=== PATIENT | female | born 1950 | race American Indian/Alaskan Native ===

== ENCOUNTER 2016-08-28 02:57 | Inpatient (IN) | payer MEDICARE, MEDICAID, OTHER ==
[2016-08-28] MEDS ORDERED: Sodium Chloride 0.9% 1,000 ML IV ONE (03:19)
[2016-08-28] MEDS ORDERED: Sodium Chloride 0.9% 1,000 ML IV STA (04:10)
--- NOTE | 2016-08-28 04:36 | EDM.PDOC ---
ED HPI GI/ABDOMINAL - General Chief Complaint: Gastrointestinal Problem Stated Complaint: fall, dizziness, N/V/D Time Seen by Provider: 08/28/16 03:21 Source of Information: Reports: Patient, EMS notes reviewed History Limitations: Reports: No limitations - History of Present Illness INITIAL COMMENTS - FREE TEXT/NARRATIVE: Albina is a 66 yo female who is brought into the ER via [facility] secondary to recent fall. Albina states she has been having bouts of diarrhea and vomiting since last week Friday. Vomiting subsided on Friday but continues to have around 5 episodes of diarrhea daily. States she is a known diabetic as well but hasn't taken any of her insulin since Friday secondary to not feeling well. States this evening she was lying in bed and had the urge to use the bathroom. Upon getting up from toilet she became lightheaded and fell. She doesn't recall falling and next thing she knew she was lying on the floor with her daughter trying to help her up. States she hit the left side of her head on the tub and has a small abrasion to her right elbow. Denies any post fall symptoms. States she feels fine presently. She admits she has multiple co-morbidities and sees Dr. Miller at [facility] [place] in [place]. She has a history of hypothyroidism, DMII, atrial fibrillation, previous valve replacement. She admits she is well controlled with medications. Checks sugars regularly as well. Associated Symptoms (-Female): Reports: denies other symptoms - Related Data Allergies/ADRs: Allergies Allergy/AdvReac Type Severity Reaction Status Date / Time azithromycin [From Zithromax] Allergy Dizziness Verified 08/28/16 03:04 lactose Allergy Nausea and Verified 08/28/16 03:04 Vomiting morphine Allergy Hives Verified 08/28/16 03:04 .DETERGENTS Allergy Rash Uncoded 08/28/16 03:04 Home Meds: Home Meds Furosemide 20 mg PO BID PRN 11/08/13 [History] Latanoprost 1 drop EYERT BEDTIME 11/08/13 [History] Albuterol [Proair HFA] 2 puff INH QID PRN 11/09/15 [History] Aspirin [Halfprin] 81 mg PO DAILY 11/09/15 [History] Ferrous Gluconate 325 mg PO TID 11/09/15 [History] Insulin Detemir [Levemir] 45 unit SUBCUT BID 11/09/15 [History] Loratadine [Allergy] 10 mg PO DAILY 11/09/15 [History] Psyllium [Metamucil] 1 cap PO BID 11/09/15 [History] atorvaSTATin [Lipitor] 20 mg PO DAILY 11/09/15 [History] Multivitamin [Multi-Day Vitamins] 1 tab PO DAILY 03/11/16 [History] Simethicone 1 tab PO QID PRN 05/09/16 [History] Cyanocobalamin (Vitamin B-12) [Vitamin B-12] 200 mcg PO DAILY 07/02/16 [History] Lisinopril 5 mg PO DAILY 07/02/16 [History] Warfarin [Coumadin] 5 mg PO DAILY #60 tablet 07/03/16 [Rx] Levothyroxine 25 mcg PO DAILY 08/28/16 [History] Past Medical History HEENT History: Reports: Cataract, Glaucoma, Other (see below) Other HEENT History: MYOPIA; PRESBYOPIA; Cardiovascular History: Reports: Afib, CAD, Cardiomyopathy, Heart Failure, Heart valve replacement, High cholesterol, Hypertension Respiratory History: Reports: Asthma Gastrointestinal History: Reports: Chronic constipation Genitourinary History: Reports: Chronic renal insuffiency, Other (see below) Other Genitourinary History: [employer] History: Reports: Dysfunctional uterine bleeding, Musculoskeletal History: Reports: Fracture, Gout Neurological History: Reports: None Endocrine/Metabolic History: Reports: Diabetes, type II Hematologic History: Reports: Anemia Immunologic History: Reports: None - Infectious Disease History Infectious Disease History: Reports: Shingles - Past Surgical History Head Surgeries/Procedures: Reports: None HEENT Surgical History: Reports: Adenoidectomy, Tonsillectomy Cardiovascular Surgical History: Reports: Coronary artery stent, Valve replacement GI Surgical History: Reports: Cholecystectomy, Colonoscopy Female Surgical History: Reports: Hysterectomy Endocrine Surgical History: Reports: None Musculoskeletal Surgical History: Reports: None Social & Family History - Family History Family Medical History: Noncontributory - Tobacco Use Smoking Status *Q: Never Smoker Years of Tobacco use: 20 Used Tobacco, but Quit: Yes Month Tobacco Last Used: 08/11/87 Second Hand Smoke Exposure: Yes - Caffeine Use Caffeine Use: Reports: None Other Caffeine Use: SPORADIC - Alcohol Use Days Per Week of Alcohol Use: 0 - Recreational Drug Use Recreational Drug Use: No Drug Use in Last 12 Months: No - Living Situation & Occupation Living situation: Reports: , with family Occupation: unemployed ED ROS GENERAL - Review of Systems Review Of Systems: See Below Constitutional: Reports: weakness, fatigue, decreased appetite. Denies: fever, chills, night sweats HEENT: Reports: No symptoms Respiratory: Denies: Shortness of Breath, Wheezing, Cough Cardiovascular: Reports: Blood pressure problem, Lightheadedness, Syncope. Denies: Chest pain, Edema, Palpitations Endocrine: Reports: fatigue, high glucose. Denies: polydypsia, polyuria GI/Abdominal: Reports: Abdominal pain, Diarrhea, Decreased appetite, Nausea, Vomiting. Denies: Bloody stool, Hematochezia, Melena : Reports: no symptoms Skin: Reports: wound (right elbow) Neurological: Reports: Dizziness, Difficulty Walking, Weakness. Denies: Headache ED EXAM, GI/ABD - Physical Exam Exam: See Below Exam Limited By: No limitations General Appearance: alert, WD/WN, no apparent distress Eyes: bilateral: normal appearance, EOMI Ears: normal external exam, normal canal, hearing grossly normal, normal TMs Nose: normal inspection, normal mucosa, no blood Throat/Mouth: Normal inspection, Normal lips, Normal teeth, Normal gums, Normal oropharynx, Normal voice, No airway compromise Head: atraumatic, normocephalic Neck: normal inspection, supple, non-tender, full range of motion. No: tender midline Respiratory/Chest: no respiratory distress, lungs clear, normal breath sounds, no accessory muscle use Cardiovascular: no edema, no murmur, irregularly irregular GI/Abdominal: soft, non tender, no organomegaly, no mass, hypoactive bowel sounds Neurological: alert, oriented, normal cognition, no motor/sensory deficits. No : inattentive, confused, slow to respond, memory loss recent events Psychiatric: normal affect, normal mood Skin Exam: Warm, Dry, Intact, Normal color, No rash, Wound/incision (small abrasion to posterior aspect of right elbow) EKG INTERPRETATION EKG Date: 08/28/16 Rhythm: a-fib Comparison: NA - no prior EKG Course - Vital Signs Last Recorded V/S: Last Vital Signs Temp 97.5 F 08/28/16 03:00 Pulse 60 08/28/16 03:00 Resp 20 08/28/16 03:00 BP 99/61 08/28/16 03:00 Pulse Ox 99 08/28/16 03:00 - Orders/Labs/Meds Orders: Active Orders 24 hr Category Date Time Status Head wo Cont [CT] Stat Exams 08/28/16 03:30 Taken C-REACTIVE PROTEIN [CHEM] Stat Lab 08/28/16 03:34 Received CMP [COMPREHENSIVE METABOLIC PN,CMP] [CHEM] Stat Lab 08/28/16 03:34 Received Medication Orders Sodium Chloride (Normal Saline) 1,000 mls @ 75 mls/hr IV NOW STA Stop: 08/28/16 17:28 Last Admin: 08/28/16 04:10 Dose: 75 mls/hr Labs: Laboratory Tests 08/28/16 08/28/16 Range/Units 03:34 03:34 WBC 7.5 (5.0-10.0) 10^3/uL RBC 3.68 L (4.00-5.50) 10^6/uL Hgb 10.9 L (12.0-16.0) g/dL Hct 34.0 L (37.0-47.0) % MCV 92.4 (82.0-94.0) fL MCH 29.6 (27.0-32.0) pg MCHC 32.1 L (33.0-38.0) g/dL RDW Coeff of Elio 14.9 (11.0-15.0) % Plt Count 233 (150-400) 10^3/uL Neut % (Auto) 70.2 (35-85) % Lymph % (Auto) 10.9 (10-55) % Lumpkin % (Auto) 11.7 (0-16) % Eos % (Auto) 6.4 H (0-5) % Baso % (Auto) 0.8 (0-3) % Neut # (Auto) 5.30 (1.80-7.00) 10^3/uL Lymph # (Auto) 0.82 L (1.00-4.80) 10^3/uL L[place]kin # (Auto) 0.88 H (0.00-0.80) 10^3/uL Eos # (Auto) 0.48 H (0.00-0.45) 10^3/uL Baso # (Auto) 0.06 10^3/uL PT 28.9 H (9.7-12.3) SEC INR 2.60 H (0.92-1.18) Meds: Medications Generic Name Dose Route Start Last Admin Trade Name Freq PRN Reason Stop Dose Admin Sodium Chloride 1,000 mls @ 75 mls/hr 08/28/16 04:10 08/28/16 04:10 Normal Saline IV 08/28/16 17:28 75 mls/hr NOW STA Administration Discontinued Medications Generic Name Dose Route Start Last Admin Trade Name Freq PRN Reason Stop Dose Admin Sodium Chloride 1,000 mls @ 999 mls/hr 08/28/16 03:19 08/28/16 03:55 Normal Saline IV 08/28/16 04:19 999 mls/hr .BOLUS ONE Administration Departure - Departure Time of Disposition: 04:25 Disposition: Admitted As Inpatient 66 Clinical Impression: Gastroenteritis - Problem List & Annotations (1) Gastroenteritis SNOMED Code(s): 40429159 Code(s): K52.9 - NONINFECTIVE GASTROENTERITIS AND COLITIS, UNSPECIFIED Status: Acute Current Visit: Yes - Problem List Review Problem List Initiated/Reviewed/Updated: Yes - My Orders Last 24 Hours: My Active Orders 08/28/16 03:30 Head wo Cont [CT] Stat 08/28/16 03:34 C-REACTIVE PROTEIN [CHEM] Stat CMP [COMPREHENSIVE METABOLIC PN,CMP] [CHEM] Stat - Assessment/Plan Admission H&P: Please use this note as an admission H&P Last 24 Hours: My Active Orders 08/28/16 03:30 Head wo Cont [CT] Stat 08/28/16 03:34 C-REACTIVE PROTEIN [CHEM] Stat CMP [COMPREHENSIVE METABOLIC PN,CMP] [CHEM] Stat Plan: Will admit to Dr. Cobos's services under acute care. D/t longevity of diarrhea with multiple co-morbidities will closely monitor. Vital signs are stable, CT of the brain negative for any acute bleeds. Dr. Cobos alerted on admission. Patient transferred to floor in satisfactory condition.
[2016-08-28] MEDS ORDERED: Ondansetron 4 MG Tab.DIS PO PRN (04:46)
[2016-08-28] MEDS ORDERED: Ondansetron 4 MG/2 ML SDV IV PRN (04:46)
[2016-08-28] MEDS ORDERED: Albuterol 8 GM Inhaler INH PRN (04:46)
[2016-08-28] MEDS ORDERED: Furosemide 20 MG Tab PO PRN (04:46)
[2016-08-28 04:48] LABS: CHLORIDE,CL 102 mEq/L (98-106); SODIUM,NA 139 mEq/L (136-145)
[2016-08-28] MEDS ORDERED: Levothyroxine 50 MCG Tab PO SCH (07:00)
[2016-08-28] MEDS ORDERED: Insulin Detemir 100 Units/ML 3 ML Pen SUBCUT SCH (08:00)
[2016-08-28] MEDS: Loratadine 10 MG Tab PO SCH (08:12)
[2016-08-28] MEDS: Aspirin 81 MG Tab.EC PO SCH (08:12)
[2016-08-28] MEDS: atorvaSTATin 20 MG Tab PO SCH (08:12)
[2016-08-28] MEDS: Lisinopril 5 MG Tab PO SCH (08:13)
[2016-08-28] MEDS: Cyanocobalamin (Vitamin B12) 100 MCG Tab PO SCH (08:13)
[2016-08-28] MEDS: Acetaminophen 325 MG Tab PO PRN ×2 (08:17→20:22)
[2016-08-28] MEDS: Levothyroxine 100 MCG Tab PO SCH (09:02)
[2016-08-28] MEDS: Insulin Detemir 100 Units/ML 3 ML Pen SUBCUT SCH ×2 (09:03→20:28)
[2016-08-28] MEDS: Ferrous Sulfate 324 MG Tab.EC PO SCH ×3 (09:03→17:42)
[2016-08-28] MEDS: Sodium Chloride 0.9% 1,000 ML IV SCH ×2 (10:15→23:04)
--- NOTE | 2016-08-28 10:56 | PN ---
DATE: 08/28/2016 S: Albina Ye came in with gastroenteritis, dehydration, had fallen at home. Her chief complaint is that she has some chest pain from the fall. O: NECK: Supple. CHEST: Clear. CARDIAC: Regular. MUSCULOSKELETAL: Really tender along the lateral left ribs. ABDOMEN: Soft. Bowel sounds are good. EXTREMITIES: Unremarkable. SKIN: Unremarkable. ASSESSMENT: 1. GASTROENTERITIS. 2. UNTREATED HYPOTHYROIDISM. 3. CHEST INJURY. P: Will get chest x-ray, appropriate lab work, increase her levothyroxine to 100 mcg daily, and proceed from there. TERESO/LORI /[id number]
[2016-08-28] MEDS: Warfarin 5 MG Tab PO SCH (12:08)
[2016-08-28] MEDS: Latanoprost 0.005% Ophth Soln 2.5 ML Bottle EYERT SCH (20:24)
[2016-08-29] MEDS: Levothyroxine 100 MCG Tab PO SCH (06:33)
[2016-08-29] MEDS: atorvaSTATin 20 MG Tab PO SCH (07:22)
[2016-08-29] MEDS: Ferrous Sulfate 324 MG Tab.EC PO SCH ×3 (07:23→17:37)
[2016-08-29] MEDS: Cyanocobalamin (Vitamin B12) 100 MCG Tab PO SCH (07:23)
[2016-08-29] MEDS: Loratadine 10 MG Tab PO SCH (07:24)
[2016-08-29] MEDS: Lisinopril 5 MG Tab PO SCH (07:24)
[2016-08-29] MEDS: Aspirin 81 MG Tab.EC PO SCH (07:24)
[2016-08-29] MEDS: Insulin Detemir 100 Units/ML 3 ML Pen SUBCUT SCH ×2 (07:25→20:52)
[2016-08-29] MEDS: Potassium Chloride 10 MEQ Tab.ER PO SCH (08:06)
[2016-08-29] MEDS: Metoprolol Succinate 25 MG Tab.ER PO SCH (08:06)
--- NOTE | 2016-08-29 08:36 | PN ---
DATE: 08/29/2016 S: This is a 66-year-old white female, who come in with had fallen at home. Atrial fibrillation with rapid ventricular rate. Gastroenteritis. O: NECK: Supple. CHEST: Clear. CARDIAC: Sounds are good other than she is tachycardic right now at 140. ABDOMEN: Soft. ASSESSMENT: 1. GASTROENTERITIS, RESOLVING. 2. HYPOKALEMIA, WE WILL CORRECT THAT. 3. ATRIAL FIBRILLATION WITH RAPID VENTRICULAR RATE, I HAVE JUST STARTED ON BETA-TWIN TODAY. TERESO/LORI /[id number]
[2016-08-29] MEDS: Acetaminophen 325 MG Tab PO PRN ×2 (10:26→17:37)
[2016-08-29] MEDS: Latanoprost 0.005% Ophth Soln 2.5 ML Bottle EYERT SCH (20:11)
[2016-08-30] MEDS: Levothyroxine 88 MCG Tab PO SCH (06:22)
[2016-08-30] MEDS: Aspirin 81 MG Tab.EC PO SCH (07:10)
[2016-08-30] MEDS: Ferrous Sulfate 324 MG Tab.EC PO SCH ×3 (07:10→17:14)
[2016-08-30] MEDS: Potassium Chloride 10 MEQ Tab.ER PO SCH (07:11)
[2016-08-30] MEDS: Cyanocobalamin (Vitamin B12) 100 MCG Tab PO SCH (07:11)
[2016-08-30] MEDS: Loratadine 10 MG Tab PO SCH (07:11)
[2016-08-30] MEDS: Metoprolol Succinate 25 MG Tab.ER PO SCH (07:12)
[2016-08-30] MEDS: Lisinopril 5 MG Tab PO SCH (07:12)
[2016-08-30] MEDS: atorvaSTATin 20 MG Tab PO SCH (07:12)
[2016-08-30] MEDS: Insulin Detemir 100 Units/ML 3 ML Pen SUBCUT SCH ×2 (07:14→20:16)
[2016-08-30] MEDS: Acetaminophen 325 MG Tab PO PRN ×3 (11:14→20:26)
--- NOTE | 2016-08-30 11:49 | PN ---
DATE: 08/30/2016 Albina Ye came in with gastroenteritis that is resolving, but her only difficulty tachycardia and congestive heart failure. INR is still elevated. We are going to hold her Coumadin. Watch her on telemetry one more day. The pulse has come down a little bit on the Toprol. Blood sugars were low this morning, so we will follow or another day. TERESO/LORI /[id number]
[2016-08-30] MEDS: Latanoprost 0.005% Ophth Soln 2.5 ML Bottle EYERT SCH (20:26)
[2016-08-31] MEDS: Acetaminophen 325 MG Tab PO PRN ×4 (00:33→21:15)
[2016-08-31] MEDS: Levothyroxine 88 MCG Tab PO SCH (06:12)
[2016-08-31] MEDS: Loratadine 10 MG Tab PO SCH (07:34)
[2016-08-31] MEDS: Ferrous Sulfate 324 MG Tab.EC PO SCH ×3 (07:34→17:17)
[2016-08-31] MEDS: Aspirin 81 MG Tab.EC PO SCH (07:34)
[2016-08-31] MEDS: Potassium Chloride 10 MEQ Tab.ER PO SCH (07:34)
[2016-08-31] MEDS: atorvaSTATin 20 MG Tab PO SCH (07:35)
[2016-08-31] MEDS: Lisinopril 5 MG Tab PO SCH (07:36)
[2016-08-31] MEDS: Metoprolol Succinate 25 MG Tab.ER PO SCH (07:36)
[2016-08-31] MEDS: Cyanocobalamin (Vitamin B12) 100 MCG Tab PO SCH (07:37)
[2016-08-31] MEDS: Insulin Detemir 100 Units/ML 3 ML Pen SUBCUT SCH ×2 (09:34→21:14)
--- NOTE | 2016-08-31 10:43 | PCM.PN ---
- General Info Date of Service: 08/31/16 Functional Status: Reports: pain controlled - Review of Systems General: Reports: Weakness HEENT: Reports: no symptoms Pulmonary: Reports: no symptoms Cardiovascular: Reports: No Symptoms Gastrointestinal: Reports: No symptoms Genitourinary: Reports: no symptoms Musculoskeletal: Reports: other (left lateral chest pain with palpation and deep breaths) Skin: Reports: no symptoms Neurological: Reports: Gait Disturbance Psychiatric: Reports: no symptoms - Patient Data Vitals - most recent: Last Vital Signs Temp 98.2 F 08/31/16 08:00 Pulse 113 H 08/31/16 08:00 Resp 20 08/31/16 08:00 BP 114/77 08/31/16 08:00 Pulse Ox 98 08/31/16 08:00 Weight - most recent: 146 lb 9.6 oz Lab Results last 24 hrs: Laboratory Results - last 24 hr 08/30/16 08/30/16 08/30/16 Range/Units 11:29 17:13 20:14 WBC (5.0-10.0) 10^3/uL RBC (4.00-5.50) 10^6/uL Hgb (12.0-16.0) g/dL Hct (37.0-47.0) % MCV (82.0-94.0) fL MCH (27.0-32.0) pg MCHC (33.0-38.0) g/dL RDW Coeff of Elio (11.0-15.0) % Plt Count (150-400) 10^3/uL Add Manual Diff Neutrophils % (Manual) (35-85) % Band Neutrophils % (0-5) % Lymphocytes % (Manual) (21-55) % Monocytes % (Manual) (2-12) % Eosinophils % (Manual) (0-5) % Absolute Neutrophils (1.80-7.00) 10^3/uL Lymphocytes # (Manual) (1.00-4.80) 10^3/uL Monocytes # (Manual) (0.00-0.80) 10^3/uL Eosinophils # (Manual) (0.00-0.45) 10^3/uL PT (9.7-12.3) SEC INR (0.92-1.18) Sodium (136-145) mEq/L Potassium (3.5-5.0) mEq/L Chloride (98-106) mEq/L Carbon Dioxide (21-32) mmol/L BUN (7-18) mg/dL Creatinine (0.6-1.0) mg/dL Est Cr Clr Drug Dosing mL/min Estimated GFR (MDRD) (>=60) mL/min Glucose (75-99) mg/dL POC Glucose 137 H 106 H 151 H (75-105) mg/dl Calcium (8.4-10.1) mg/dL 08/31/16 08/31/16 08/31/16 Range/Units 05:11 05:11 05:11 WBC 7.8 (5.0-10.0) 10^3/uL RBC 3.27 L (4.00-5.50) 10^6/uL Hgb 9.6 L (12.0-16.0) g/dL Hct 31.1 L (37.0-47.0) % MCV 95.1 H (82.0-94.0) fL MCH 29.4 (27.0-32.0) pg MCHC 30.9 L (33.0-38.0) g/dL RDW Coeff of Elio 14.8 (11.0-15.0) % Plt Count 230 (150-400) 10^3/uL Add Manual Diff Yes Neutrophils % (Manual) 58 (35-85) % Band Neutrophils % 1 (0-5) % Lymphocytes % (Manual) 24 (21-55) % Monocytes % (Manual) 5 (2-12) % Eosinophils % (Manual) 12 H (0-5) % Absolute Neutrophils 4.60 (1.80-7.00) 10^3/uL Lymphocytes # (Manual) 1.87 (1.00-4.80) 10^3/uL Monocytes # (Manual) 0.39 (0.00-0.80) 10^3/uL Eosinophils # (Manual) 0.94 H (0.00-0.45) 10^3/uL PT 54.5 H (9.7-12.3) SEC INR 4.81 H* (0.92-1.18) Sodium 142 (136-145) mEq/L Potassium 4.9 (3.5-5.0) mEq/L Chloride 112 H (98-106) mEq/L Carbon Dioxide 21 (21-32) mmol/L BUN 32 H (7-18) mg/dL Creatinine 1.5 H (0.6-1.0) mg/dL Est Cr Clr Drug Dosing 34.54 mL/min Estimated GFR (MDRD) 35 L (>=60) mL/min Glucose 65 L (75-99) mg/dL POC Glucose (75-105) mg/dl Calcium 8.4 (8.4-10.1) mg/dL 08/31/16 Range/Units 07:33 WBC (5.0-10.0) 10^3/uL RBC (4.00-5.50) 10^6/uL Hgb (12.0-16.0) g/dL Hct (37.0-47.0) % MCV (82.0-94.0) fL MCH (27.0-32.0) pg MCHC (33.0-38.0) g/dL RDW Coeff of Elio (11.0-15.0) % Plt Count (150-400) 10^3/uL Add Manual Diff Neutrophils % (Manual) (35-85) % Band Neutrophils % (0-5) % Lymphocytes % (Manual) (21-55) % Monocytes % (Manual) (2-12) % Eosinophils % (Manual) (0-5) % Absolute Neutrophils (1.80-7.00) 10^3/uL Lymphocytes # (Manual) (1.00-4.80) 10^3/uL Monocytes # (Manual) (0.00-0.80) 10^3/uL Eosinophils # (Manual) (0.00-0.45) 10^3/uL PT (9.7-12.3) SEC INR (0.92-1.18) Sodium (136-145) mEq/L Potassium (3.5-5.0) mEq/L Chloride (98-106) mEq/L Carbon Dioxide (21-32) mmol/L BUN (7-18) mg/dL Creatinine (0.6-1.0) mg/dL Est Cr Clr Drug Dosing mL/min Estimated GFR (MDRD) (>=60) mL/min Glucose (75-99) mg/dL POC Glucose 57 L (75-105) mg/dl Calcium (8.4-10.1) mg/dL Charles Results last 24 hrs: Microbiology 08/30/16 08:23 Occult Blood - Preliminary Stool / Feces - Stool, Liquid Med Orders - Current: Current Medications Acetaminophen (Tylenol) 650 mg PO Q4H PRN PRN Reason: Pain (Mild 1-3)/fever Last Admin: 08/31/16 06:12 Dose: 650 mg Albuterol (Ventolin Hfa) 0 gm INH QID PRN PRN Reason: Wheezing Aspirin (Halfprin) 81 mg PO DAILY [facility] Last Admin: 08/31/16 07:34 Dose: 81 mg Atorvastatin Calcium (Lipitor) 20 mg PO DAILY [facility] Last Admin: 08/31/16 07:35 Dose: 20 mg Cyanocobalamin (Vitamin B12) 200 mcg PO DAILY [facility] Last Admin: 08/31/16 07:37 Dose: 200 mcg Ferrous Sulfate (Ferrous Sulfate) 324 mg PO TIDMEALS [facility] Last Admin: 08/31/16 07:34 Dose: 324 mg Furosemide (Lasix) 20 mg PO BID PRN PRN Reason: Shortness of Breath Insulin Detemir (Levemir) 45 unit SUBCUT BID [facility] Last Admin: 08/31/16 09:34 Dose: Not Given Latanoprost (Xalatan 0.005% Ophth Soln) 0 ml EYERT BEDTIME [facility] Last Admin: 08/30/16 20:26 Dose: 1 drop Levothyroxine Sodium (Synthroid) 88 mcg PO ACBREAKFAST [facility] Last Admin: 08/31/16 06:12 Dose: 88 mcg Lisinopril (Prinivil) 5 mg PO DAILY [facility] Last Admin: 08/31/16 07:36 Dose: 5 mg Loratadine (Claritin) 10 mg PO DAILY [facility] Last Admin: 08/31/16 07:34 Dose: 10 mg Magnesium Oxide (Magnesium Oxide) 500 mg PO DAILY [facility] Last Admin: 08/31/16 07:35 Dose: 500 mg Metoprolol Succinate (Toprol Xl) 25 mg PO DAILY [facility] Last Admin: 08/31/16 07:36 Dose: 25 mg Ondansetron HCl (Zofran) 4 mg IV Q4H PRN PRN Reason: Nausea/Vomiting Ondansetron HCl (Zofran Odt) 4 mg PO Q4H PRN PRN Reason: nausea, able to take PO Potassium Chloride (Klor-Con 10) 20 meq PO DAILY [facility] Last Admin: 08/31/16 07:34 Dose: 20 meq Warfarin Sodium (Coumadin) 5 mg PO DAILY@1200 [facility] Last Admin: 08/28/16 12:08 Dose: 5 mg Discontinued Medications Sodium Chloride (Normal Saline) 1,000 mls @ 999 mls/hr IV .BOLUS ONE Stop: 08/28/16 04:19 Last Admin: 08/28/16 03:55 Dose: 999 mls/hr Sodium Chloride (Normal Saline) 1,000 mls @ 75 mls/hr IV NOW STA Stop: 08/28/16 17:28 Last Admin: 08/28/16 04:10 Dose: 75 mls/hr Sodium Chloride (Normal Saline) 1,000 mls @ 75 mls/hr IV ASDIRECTED [facility] Last Admin: 08/28/16 23:04 Dose: 75 mls/hr Levothyroxine Sodium (Synthroid) 25 mcg PO ACBREAKFAST [facility] Last Admin: 08/28/16 09:57 Dose: Not Given Levothyroxine Sodium (Synthroid) 100 mcg PO ACBREAKFAST [facility] Last Admin: 08/29/16 06:33 Dose: 100 mcg - Exam General: alert, oriented, cooperative, no acute distress HEENT: Pupils equal, Pupils reactive, EOMI, Mucous membr. moist/pink Neck: supple Lungs: Clear to auscultation, Normal respiratory effort Cardiovascular: Regular Rate, Regular Rhythm Abdomen: soft, no tenderness Back Exam: normal inspection, full range of motion, other (left lateral chest mild pain palpation and movement of the chest. Easily manipulated. No known injury.) Extremities: no edema Peripheral Pulses: 2+: posterior tibial (L), posterior tibial (R), dorsalis pedis (L), dorsalis pedis (R) Skin: warm, dry, intact Neurological: no new focal deficit Psy/Mental Status: alert, normal affect, normal mood EKG INTERPRETATION EKG Date: 08/31/16 Time: 11:00 Rhythm: a-fib Rate (beats/min): 108 - Problem List Review Problem List Initiated/Reviewed/Updated: Yes - Plan Plan:: This patient is a 66 year old female admitted for general weakness, coumadin toxic, gait ataxia, and gastroenteritis. Patient today reports that she does feel good. She reports that she is still generally weak. She reports she continues to have pain to the left lateral chest that is worse with breathing and movement and palpation. PCP has plan for this patient to be evaluated for home health, pain control, PT, OT for strengthening. The patient has tachycardia at rate of 104. Labs her IN is today still 4.81, this was yesterday 6.48. Will continue to hold coumadin. Her BS has been in the 50s. Patient reports her BS at home is usualy under 200 and does at times fall below 60. She reports she does not have symptoms of headache, dizziness, n, v, d, f, soa, abd pain, urinary/bowel changes. I will order an ekg. Review her CXR. She is currently walking in the halls with [employer]CH[employer] without difficulty. Her Troponin is negative. Her EKG still shows a-fib over 100 HR. I have increased her Meteprolol.
[2016-08-31] MEDS: Warfarin 5 MG Tab PO SCH (11:44)
[2016-08-31] MEDS ORDERED: Metoprolol Succinate 25 MG Tab.ER PO SCH (12:59)
[2016-08-31] MEDS ORDERED: Metoprolol Succinate 25 MG Tab.ER PO ONE (13:13)
[2016-08-31] MEDS: Latanoprost 0.005% Ophth Soln 2.5 ML Bottle EYERT SCH (21:13)
[2016-09-01] MEDS: Levothyroxine 88 MCG Tab PO SCH (06:18)
[2016-09-01 07:25] VITALS: BP 106/68
[2016-09-01] MEDS: Potassium Chloride 10 MEQ Tab.ER PO SCH (07:28)
[2016-09-01] MEDS: Aspirin 81 MG Tab.EC PO SCH (07:28)
[2016-09-01] MEDS: Loratadine 10 MG Tab PO SCH (07:28)
[2016-09-01] MEDS: Ferrous Sulfate 324 MG Tab.EC PO SCH ×2 (07:28→11:33)
[2016-09-01] MEDS: atorvaSTATin 20 MG Tab PO SCH (07:29)
[2016-09-01] MEDS: Lisinopril 5 MG Tab PO SCH (07:29)
[2016-09-01] MEDS: Cyanocobalamin (Vitamin B12) 100 MCG Tab PO SCH (07:30)
[2016-09-01] MEDS: Acetaminophen 325 MG Tab PO PRN (09:00)
[2016-09-01] MEDS: Insulin Detemir 100 Units/ML 3 ML Pen SUBCUT SCH (09:41)
--- NOTE | 2016-09-01 10:49 | PCM.DCSUM1 ---
Discharge Summary - Hospital Course HPI Initial Comments: This patient is a 66 year old female that was admitted for gastroenteritis and coumadin toxicity. Today she reports she is feeling better. She reports she is ready to go home today. The patient INR on the was 6.48, yesterday 4.81, and today is 3.91 after holding coumadin dosage. Otherwise her labs are unremarkable. The patient reports she is out of all of her medications. Although , [employer] has found several of her medications with her in the room that have refills on them and some with pills still in the bottle. I have found that the patient was prescribed Metoprolol for her a-fib rapid RH, but she was not taking it. I will discharge the patient today. She is to followup with her PCP this week. I will only write prescription for medications that she is out of refills of. She reports her left laterl chest pain is better. Her EKG and troponin were unchanged/unremarkable. I did increase her Metorpolol yesterday and today her HR is now a-fib rate of 90. Stable. - Discharge Data Discharge Date: 09/01/16 Discharge Disposition: Home, Self-Care 01 Condition: Stable - Patient Instructions Diet: Heart Healthy Diet Activity: As Tolerated Driving: May Drive Today Showering/Bathing: May Shower Notify Provider of: Fever, Increased Pain, Swelling and Redness, Nausea and/or Vomiting - Discharge Plan Home Medications: Home Meds Furosemide 20 mg PO BID PRN 11/08/13 [History] Latanoprost 1 drop EYERT BEDTIME 11/08/13 [History] Aspirin [Halfprin] 81 mg PO DAILY 11/09/15 [History] Ferrous Gluconate 325 mg PO TID 11/09/15 [History] Insulin Detemir [Levemir] 45 unit SUBCUT BID 11/09/15 [History] Loratadine [Allergy] 10 mg PO DAILY 11/09/15 [History] Psyllium [Metamucil] 1 cap PO BID 11/09/15 [History] atorvaSTATin [Lipitor] 20 mg PO DAILY 11/09/15 [History] Multivitamin [Multi-Day Vitamins] 1 tab PO DAILY 03/11/16 [History] Simethicone 1 tab PO QID PRN 05/09/16 [History] Cyanocobalamin (Vitamin B-12) [Vitamin B-12] 200 mcg PO DAILY 07/02/16 [History] Lisinopril 5 mg PO DAILY 07/02/16 [History] Levothyroxine 25 mcg PO DAILY 08/28/16 [History] Insulin Detemir [Levemir] 45 unit SUBCUT BID pen 09/01/16 [Rx] Metoprolol Succinate [Toprol XL] 100 mg PO DAILY tab.er 09/01/16 [Rx] Warfarin [Coumadin] 2.5 mg PO DAILY #60 tablet 09/01/16 [Rx] Forms: ED Department Discharge Referrals: PCP,None [Primary Care Provider] - - Discharge Summary/Plan Comment DC Time >30 min.: No Discharge Summary/Plan Comment: Followup with your primary care provider this week Recheck your PIT/INR 09/06/16. Hold Coumadin Friday: Restart Coumadin 2.5mg 1 pill once a day on Friday daily Increase fluids I refilled Latanoprost, Coumadin, and Simethicone. Return to the ER for worsening of condition or any emergent concerns - General Info Date of Service: 09/01/16 Functional Status: Reports: pain controlled, tolerating diet, ambulating, urinating - Review of Systems General: Reports: No Symptoms HEENT: Reports: no symptoms Pulmonary: Reports: no symptoms Cardiovascular: Reports: No Symptoms Gastrointestinal: Reports: No symptoms Genitourinary: Reports: no symptoms Musculoskeletal: Reports: no symptoms Skin: Reports: no symptoms Neurological: Reports: No Symptoms Psychiatric: Reports: no symptoms - Patient Data Vitals - Most Recent: Last Vital Signs Temp 99.1 F 09/01/16 07:24 Pulse 103 H 09/01/16 07:30 Resp 16 09/01/16 07:24 BP 106/68 09/01/16 07:30 Pulse Ox 98 09/01/16 07:24 Weight - Most Recent: 146 lb 9.6 oz Lab Results - Last 24 hrs: Laboratory Results - last 24 hr 08/31/16 08/31/16 08/31/16 Range/Units 10:48 11:26 17:41 WBC (5.0-10.0) 10^3/uL RBC (4.00-5.50) 10^6/uL Hgb (12.0-16.0) g/dL Hct (37.0-47.0) % MCV (82.0-94.0) fL MCH (27.0-32.0) pg MCHC (33.0-38.0) g/dL RDW Coeff of Elio (11.0-15.0) % Plt Count (150-400) 10^3/uL MPV fL PT (9.7-12.3) SEC INR (0.92-1.18) Sodium (136-145) mEq/L Potassium (3.5-5.0) mEq/L Chloride (98-106) mEq/L Carbon Dioxide (21-32) mmol/L BUN (7-18) mg/dL Creatinine (0.6-1.0) mg/dL Est Cr Clr Drug Dosing mL/min Estimated GFR (MDRD) (>=60) mL/min Glucose (75-99) mg/dL POC Glucose 141 H 194 H (75-105) mg/dl Calcium (8.4-10.1) mg/dL Troponin I < 0.017 (0.00-0.06) ng/mL 08/31/16 09/01/16 09/01/16 Range/Units 20:46 07:22 09:39 WBC (5.0-10.0) 10^3/uL RBC (4.00-5.50) 10^6/uL Hgb (12.0-16.0) g/dL Hct (37.0-47.0) % MCV (82.0-94.0) fL MCH (27.0-32.0) pg MCHC (33.0-38.0) g/dL RDW Coeff of Elio (11.0-15.0) % Plt Count (150-400) 10^3/uL MPV fL PT 44.0 H (9.7-12.3) SEC INR 3.91 H (0.92-1.18) Sodium (136-145) mEq/L Potassium (3.5-5.0) mEq/L Chloride (98-106) mEq/L Carbon Dioxide (21-32) mmol/L BUN (7-18) mg/dL Creatinine (0.6-1.0) mg/dL Est Cr Clr Drug Dosing mL/min Estimated GFR (MDRD) (>=60) mL/min Glucose (75-99) mg/dL POC Glucose 202 H 60 L (75-105) mg/dl Calcium (8.4-10.1) mg/dL Troponin I (0.00-0.06) ng/mL 09/01/16 09/01/16 Range/Units 09:40 09:40 WBC 10.2 H (5.0-10.0) 10^3/uL RBC 3.27 L (4.00-5.50) 10^6/uL Hgb 9.7 L (12.0-16.0) g/dL Hct 31.3 L (37.0-47.0) % MCV 95.7 H (82.0-94.0) fL MCH 29.7 (27.0-32.0) pg MCHC 31.0 L (33.0-38.0) g/dL RDW Coeff of Elio 14.9 (11.0-15.0) % Plt Count 281 (150-400) 10^3/uL MPV 9.7 fL PT (9.7-12.3) SEC INR (0.92-1.18) Sodium 142 (136-145) mEq/L Potassium 4.2 (3.5-5.0) mEq/L Chloride 111 H (98-106) mEq/L Carbon Dioxide 20 L (21-32) mmol/L BUN 34 H (7-18) mg/dL Creatinine 1.5 H (0.6-1.0) mg/dL Est Cr Clr Drug Dosing 34.54 mL/min Estimated GFR (MDRD) 35 L (>=60) mL/min Glucose 82 D (75-99) mg/dL POC Glucose (75-105) mg/dl Calcium 8.4 (8.4-10.1) mg/dL Troponin I (0.00-0.06) ng/mL [facility] Results - Last 24 hrs: Microbiology 08/28/16 20:00 Stool Aerobic Culture - Preliminary Stool / Feces - Stool, Liquid Med Orders - Current: Current Medications Acetaminophen (Tylenol) 650 mg PO Q4H PRN PRN Reason: Pain (Mild 1-3)/fever Last Admin: 09/01/16 09:00 Dose: 650 mg Albuterol (Ventolin Hfa) 0 gm INH QID PRN PRN Reason: Wheezing Aspirin (Halfprin) 81 mg PO DAILY [facility] Last Admin: 09/01/16 07:28 Dose: 81 mg Atorvastatin Calcium (Lipitor) 20 mg PO DAILY [facility] Last Admin: 09/01/16 07:29 Dose: 20 mg Cyanocobalamin (Vitamin B12) 200 mcg PO DAILY [facility] Last Admin: 09/01/16 07:30 Dose: 200 mcg Ferrous Sulfate (Ferrous Sulfate) 324 mg PO TIDMEALS [facility] Last Admin: 09/01/16 07:28 Dose: 324 mg Furosemide (Lasix) 20 mg PO BID PRN PRN Reason: Shortness of Breath Insulin Detemir (Levemir) 45 unit SUBCUT BID [facility] Last Admin: 09/01/16 09:41 Dose: Not Given Latanoprost (Xalatan 0.005% Ophth Soln) 0 ml EYERT BEDTIME [facility] Last Admin: 08/31/16 21:13 Dose: 1 drop Levothyroxine Sodium (Synthroid) 88 mcg PO ACBREAKFAST [facility] Last Admin: 09/01/16 06:18 Dose: 88 mcg Lisinopril (Prinivil) 5 mg PO DAILY [facility] Last Admin: 09/01/16 07:29 Dose: 5 mg Loratadine (Claritin) 10 mg PO DAILY [facility] Last Admin: 09/01/16 07:28 Dose: 10 mg Magnesium Oxide (Magnesium Oxide) 500 mg PO DAILY [facility] Last Admin: 09/01/16 07:29 Dose: 500 mg Metoprolol Succinate (Toprol Xl) 50 mg PO DAILY [facility] Last Admin: 09/01/16 07:30 Dose: 50 mg Ondansetron HCl (Zofran) 4 mg IV Q4H PRN PRN Reason: Nausea/Vomiting Ondansetron HCl (Zofran Odt) 4 mg PO Q4H PRN PRN Reason: nausea, able to take PO Potassium Chloride (Klor-Con 10) 20 meq PO DAILY [facility] Last Admin: 09/01/16 07:28 Dose: 20 meq Warfarin Sodium (Coumadin) 5 mg PO DAILY@1200 [facility] Last Admin: 08/31/16 11:44 Dose: Not Given Discontinued Medications Sodium Chloride (Normal Saline) 1,000 mls @ 999 mls/hr IV .BOLUS ONE Stop: 08/28/16 04:19 Last Admin: 08/28/16 03:55 Dose: 999 mls/hr Sodium Chloride (Normal Saline) 1,000 mls @ 75 mls/hr IV NOW STA Stop: 08/28/16 17:28 Last Admin: 08/28/16 04:10 Dose: 75 mls/hr Sodium Chloride (Normal Saline) 1,000 mls @ 75 mls/hr IV ASDIRECTED [facility] Last Admin: 08/28/16 23:04 Dose: 75 mls/hr Levothyroxine Sodium (Synthroid) 25 mcg PO ACBREAKFAST [facility] Last Admin: 08/28/16 09:57 Dose: Not Given Levothyroxine Sodium (Synthroid) 100 mcg PO ACBREAKFAST [facility] Last Admin: 08/29/16 06:33 Dose: 100 mcg Metoprolol Succinate (Toprol Xl) 25 mg PO DAILY [facility] Last Admin: 08/31/16 07:36 Dose: 25 mg Metoprolol Succinate (Toprol Xl) 25 mg PO ONETIME ONE Stop: 08/31/16 13:14 Last Admin: 08/31/16 13:28 Dose: 25 mg - Exam General: Reports: alert, oriented, cooperative, no acute distress HEENT: Reports: Pupils equal, Pupils reactive Neck: Reports: supple, trachea midline Lungs: Reports: Clear to auscultation, Normal respiratory effort Cardiovascular: Reports: Regular Rate, Regular Rhythm, No Murmurs Abdomen: Reports: soft, no tenderness, no distension Back Exam: Reports: normal inspection, full range of motion Extremities: Reports: no edema, normal pulses, no tenderness/swelling, no clubbing, no cyanosis, no calf tenderness Skin: Reports: warm, dry, intact Neurological: Reports: no new focal deficit Psy/Mental Status: Reports: alert, normal affect, normal mood *Q Meaningful Use (DIS) - VTE *Q VTE Criteria *Q: - Stroke *Q Stroke Criteria *Q: - AMI *Q AMI Criteria *Q:
== END 2016-09-01 12:25 | disposition home or self-care (01) | DRG 392 ==
LOC: CC.ED 02:57 → CC.MS 04:02 → UNDOADMIN 04:02 → CC.MS 04:46
PROVIDERS: ADMIT Physician Assistant Medical; ATTEND General Practice
DX: K52.9 Noninfective gastroenteritis and colitis, unspecified (principal); S09.90XA Unspecified injury of head, initial encounter; I13.0 Hypertensive heart and chronic kidney disease with heart failure and stage 1 through stage 4 chronic kidney disease, or unspecified chronic kidney disease; E86.0 Dehydration; E03.9 Hypothyroidism, unspecified; E87.6 Hypokalemia; S29.9XXA Unspecified injury of thorax, initial encounter; W18.09XA Striking against other object with subsequent fall, initial encounter; Y92.002 Bathroom of unspecified non-institutional (private) residence as the place of occurrence of the external cause; E11.9 Type 2 diabetes mellitus without complications; Z79.4 Long term (current) use of insulin; I48.91 Unspecified atrial fibrillation; I25.10 Atherosclerotic heart disease of native coronary artery without angina pectoris; N18.3 Chronic kidney disease, stage 3 (moderate); I50.9 Heart failure, unspecified; Z87.891 Personal history of nicotine dependence; E78.00 Pure hypercholesterolemia, unspecified; Z95.5 Presence of coronary angioplasty implant and graft; Z95.2 Presence of prosthetic heart valve; J45.909 Unspecified asthma, uncomplicated; M10.9 Gout, unspecified; D64.9 Anemia, unspecified; H40.9 Unspecified glaucoma; Z79.01 Long term (current) use of anticoagulants; Z79.82 Long term (current) use of aspirin; Z79.899 Other long term (current) drug therapy; Z88.6 Allergy status to analgesic agent; Z88.1 Allergy status to other antibiotic agents; Z91.011 Allergy to milk products; R53.1 Weakness; T45.515A Adverse effect of anticoagulants, initial encounter; Y92.239 Unspecified place in hospital as the place of occurrence of the external cause
CPT/HCPCS: 36415; 70450; 80053; 83735; 84439; 84443; 85025; 85610; 86140; 99285; J7030 ×2; 71020; 80048; 82270; 82533; 82550; 82607; 82746; 82962; 83880; 84484; 85027; 87045; 87046; 87493; 93005; A9270-GY; J1815-GY